=== PATIENT | male | born 1970 | race Caucasian/White ===

== ENCOUNTER → 2022-05-27 11:21 | Outpatient (CLI) | payer OTHER, SELFPAY ==
[2022-05-27 12:31] LABS: COVID19 -Nasal RAPID Negative (Negative)
== END ==
PROVIDERS: Visit Provider Surgery
DX: Z01.812 Encounter for preprocedural laboratory examination (principal); Z20.822 Contact with and (suspected) exposure to COVID-19
CPT/HCPCS: 87635; C9803

== ENCOUNTER 2022-05-30 07:12 | Day surgery (SDC) | payer OTHER, SELFPAY ==
--- NOTE | 2022-05-30 | PATH_ITS ---
[facility] Accession Number: [id number] . 01 Material submitted: . colon - RECTAL/SIGMOID COLON POLYP . 01 Diagnosis: Rectal/Sigmoid Colon Polyp: Hyperplastic polyp. MRV 05/31/2022 1242 Local . 01 Electronically signed: . Magali Bell MD, Pathologist NPI- [id number] . 01 Gross description: . RECTAL/SIGMOID COLON POLYP: Received in formalin is 1 fragment(s) of sagastume, soft tissue measuring 0.3 x 0.3 x 0.2 cm submitted entirely in 1 cassette(s) /CAT 05/30/2022 1927 Local . 01 Pathologist provided ICD-10: K63.5, Z12.11 . 01 CPT . 307137 Specimen Comment: A courtesy copy of this report has been sent to [phone] Performed at: 01 [facility] [address] [place] [address], [place], [place] [id number] MD Paxton Pham MD Phone: [phone]
[2022-05-30] MEDS: LACTATED RINGERS 1,000 ML 100 ML IV (07:39)
[2022-05-30 07:40] VITALS: BP 127/74; PULSE 64; RESP 16; TEMP 35.9; O2SAT 98; BMI 33.1
--- NOTE | 2022-05-30 08:32 | PM.HP.1 ---
History of Present Illness History of Present Illness Date Patient Seen: 05/30/22 Time Patient Seen: 08:32 Chief complaint: SCREENING COLONOSCOPY Narrative: I reviewed my office note from April of this year. No changes. Patient History Family & Social History Social History: household members family Tobacco & Substance use: Smoking Status Former smoker alcohol intake frequency holiday/special occasion Substance Use Type does not use Meds Home Medications and Allergies Home Medications Medication Instructions Recorded Confirmed Type atorvastatin 80 mg tablet 80 tab PO DAILY 05/30/22 05/30/22 History clopidogrel 75 mg tablet 75 mg PO DAILY 05/30/22 05/30/22 History losartan 25 mg tablet 25 tab PO DAILY 05/30/22 05/30/22 History metoprolol tartrate 25 mg tablet 25 tab PO DAILY 05/30/22 05/30/22 History Allergies Allergy/AdvReac Type Severity Reaction Status Date / Time No Known Drug Allergies Allergy Verified 05/30/22 07:57 Review of Systems Review of Systems ROS: Yes All systems reviewed with the patient and are negative except as otherwise documented Exam Vital Signs (past 8 hours): - 05/30/22 07:40 Temperature 96.7 F L Pulse Rate 64 Respiratory Rate 16 Blood Pressure 127/74 Pulse Oximetry 98 Oxygen Delivery Method Room Air Oxygen Delivery Method Room Air Const General: cooperative HENMT Head: normal to inspection Eyes General: appearance normal, both eyes and all related structures Neck Neck: normal visual inspection Chest Chest: normal inspection of the chest Resp Effort & Inspection: normal respiratory effort Cardio Rate: regular rate GI Inspection: normal to inspection Skin General: no rashes or lesions noted Neuro General: patient alert and patient awake Extrem General: normal to inspection and no pedal edema Psych Appearance: grossly normal Assessment & Plan Assessment & Plan narrative: 52-year-old male indicated for colon cancer screening. He is off his Plavix x5 days. Colonoscopy is planned for today. Time Spent With Patient Critical Care time: I spent a total of [] minutes of critical care time on this patient's care today; this time is exclusive of procedural time.
--- NOTE | 2022-05-30 08:33 | PM.PREOP ---
Pre-operative Note COVID-19 COVID-19 status: Negative Result date/Date tested (Pos, Neg/Pending): 05/27/22 Criteria for continued procedure: Possibility delay results in more complex future surgery or treatment Interval Note History & Physical reviewed/Exam performed by Physician: Yes Changes to H&P: No ASA Class (for procedural sedation): II
--- NOTE | 2022-05-30 09:46 | P.OP.COLON_ITS ---
Operative Date/Time/Diagnoses Date of procedure: 05/30/22 Time of procedure: 09:46 Pre-op diagnosis: Colon cancer screening Post-op diagnosis: same Procedure & Clinicians Study performed: Colonoscopy with hot snare polypectomy Same procedure as scheduled: Yes Indications: Colon cancer screening Surgeon: Tomi Argueta Procedure Notes SCOAP/Timeout: Done Procedure in detail: After the risks and benefits were explained, written and verbal informed consent was obtained. The patient was brought into the procedure room and placed into the left lateral decubitus position. Please see nurse java software architect notes for sedation details. Digital rectal examination was accomplished. The scope was introduced into the patient and advanced under direct visualization to the cecum as identified by the appendiceal orifice and ileocecal valve. The scope was slowly withdrawn to carefully examine the mucosa for any defects or lesions. Comprehensive imaging was accomplished throughout the rectum including the dentate line. The colon was decompressed, the scope was then removed from the patient who tolerated the procedure well. Bowel prep fair at best copious amounts of irrigation and suction were required. Even with this there were some areas that could not be fully cleansed. Adult colonoscope Scope withdrawal time: 14 minutes Sedation minutes: 23 Complications: none Impression: Bowel prep was fair at best copious irrigation was required. Some areas could not be fully cleansed. In the rectosigmoid there was a 6 mm sessile polyp removed with hot snare. Patient had grade 2 internal hemorrhoids noted on direct views. No additional pathology was appreciated throughout. Endoscopic diagnosis 1. Colon polyp 2. Grade 2 hemorrhoids Post-procedure Plan for aftercare: 1. Await histopathology 2. Even if the polyp is confirmed hyperplastic, based on prep today I would recommend an early repeat screening within the next 3-5 years considering the bowel prep today. 3. Plavix can be restarted in the next couple of days. Disposition: PACU
[2022-05-30 09:50] VITALS: BP 104/53; PULSE 60; RESP 13; TEMP 36.4; O2SAT 96
[2022-05-30 09:55] VITALS: BP 103/47; PULSE 59; RESP 16; TEMP 36.6; O2SAT 98
[2022-05-30 10:00] VITALS: BP 108/61; PULSE 56; RESP 16; TEMP 36.4; O2SAT 98
[2022-05-30 10:04] VITALS: BP 110/63; PULSE 53; RESP 16; TEMP 36.3; O2SAT 98
== END 2022-05-30 10:20 | disposition home or self-care (01) ==
PROVIDERS: Referring Provider Internal Medicine Gastroenterology; Visit Provider Internal Medicine Gastroenterology
PROC: 0DJD8ZZ Inspection of Lower Intestinal Tract, Via Natural or Artificial Opening Endoscopic (ICD-10-PCS; CPT 45378; principal; 2022-05-30 09:00)
DX: Z12.11 Encounter for screening for malignant neoplasm of colon (principal); K64.1 Second degree hemorrhoids; K63.5 Polyp of colon
CPT/HCPCS: 45385; J2704

== ENCOUNTER → 2023-02-09 12:01 | Outpatient (CLI) | payer OTHER, SELFPAY | DX: G56.00 Carpal tunnel syndrome, unspecified upper limb (principal) | CPT/HCPCS: 95885; 95886; 95910 ==

== ENCOUNTER → 2023-02-23 13:15 | Outpatient (CLI) | payer OTHER, SELFPAY ==
[2023-02-23 14:15] LABS: Add Manual Diff / Slide Review NO; Basophils Absolute Auto 100 /uL (0-100); Basophils Percent Auto 0.7 % (0-2); Eosinophils Absolute Auto 300 /uL (0-450); Eosinophils Percent Auto 3.5 % (2-4); Hematocrit 42.2 % (41-53); Hemoglobin 14.5 g/dL (13.5-17.5); Lymphocytes Absolute Auto 2500 /uL (1100-4500); Lymphocytes Percent Auto 29.2 % (25-40); Mean Corpuscular HGB Conc 34.3 % (30-36); Mean Corpuscular Hemoglobin 31.1 PG (26-34); Mean Corpuscular Volume 90.7 fL (80-100); Monocytes Absolute Auto 700 /uL (0-900); Monocytes Percent Auto 8.5 % (3-14); Neutrophils Absolute Auto 5100 /uL (1500-7000); Neutrophils Percent Auto 58.1 % (50-75); Platelet Count 234 X10^3/uL (150-400); Red Blood Cell Count 4.65 X10^6/uL (4.5-5.9); Red Cell Distribution Width 13.4 % (11.6-14.8); White Blood Cell Count 8.7 X10^3/uL (4.5-11.0)
[2023-02-23 14:29] LABS: BUN Creatinine Ratio 20.6 (6-22); Blood Urea Nitrogen 20 mg/dL (9-20); Calcium 9.2 mg/dL (8.4-10.2); Carbon Dioxide 31 mmol/L (22-32); Chloride 100 mmol/L (98-107); Estimated Glomerular Filt Rate > 60 mL/min (>60); Glucose 83 mg/dL (70-100); HEMOLYSIS < 15 (0-50); Sodium 139 mmol/L (137-145)
[2023-02-23 14:43] LABS: Appearance Urine UA CLEAR; Bilirubin Urine UA NEGATIVE (NEGATIVE); Color Urine UA YELLOW; Glucose Urine UA NEGATIVE (Negative); Ketones Urine UA NEGATIVE (NEGATIVE); Leukocyte Esterase Urine UA NEGATIVE (NEGATIVE); Nitrite Urine UA NEGATIVE (Negative); Occult Blood Urine UA NEGATIVE (Negative); Protein Urine UA NEGATIVE (Negative); Urobilinogen Urine UA 0.2 E.U./dL (0.2)
[2023-02-23 14:47] LABS: Bacteria Urine None Seen; Culture Indicated Urine Cult Not Indicated; RBC Urine None Seen (0-5/HPF); Urine Comments Microscopic Normal; WBC Urine None Seen (0-5/HPF)
[2023-02-24 09:32] LABS: Labcorp Hemoglobin (Hb) A1c 6.5 % (4.8-5.6)
== END ==
PROVIDERS: Referring Provider Orthopaedic Surgery; Visit Provider Orthopaedic Surgery
DX: Z01.818 Encounter for other preprocedural examination (principal); Z01.812 Encounter for preprocedural laboratory examination; R73.9 Hyperglycemia, unspecified; N39.0 Urinary tract infection, site not specified
CPT/HCPCS: 36415; 80048; 81001; 83036; 85025; 93005; 93010

== ENCOUNTER 2023-05-16 08:20 | Day surgery (SDC) | payer OTHER, SELFPAY ==
[2023-05-03 15:15] VITALS: BMI 32.3
[2023-05-16] VITALS (7 sets, daily range): BP systolic 134–160; BP diastolic 79–92; PULSE 57–78; RESP 10–20; TEMP 36.2–36.4; O2SAT 91–98; BMI 32.3
--- NOTE | 2023-05-16 08:30 | DI.RAD.S_ITS ---
PROCEDURE: XR KNEE LT 1TO2V INDICATIONS: UKA TECHNIQUE: 2 view(s) of the knee acquired. COMPARISON: None. FINDINGS: Bones: Patient is status post left knee medial hemiarthroplasty.. Hardware components are in expected positions. Surgical clips present in the subcutaneous medial soft tissues above the knee joint. Visualized bony structures are intact. Soft tissues: There is intra-articular air. IMPRESSION: 1. Expected appearance post medial hemiarthroplasty. Dictated by: Patricia Stacy M.D. on 05/16/2023 at 12:25 Approved by: Patricia Stacy M.D. on 05/16/2023 at 12:26
[2023-05-16] MEDS: ACETAMINOPHEN 325 MG TABLET 975 MG PO (09:03)
[2023-05-16] MEDS: PREGABALIN 75 MG CAPSULE PO (09:04)
[2023-05-16] MEDS: LACTATED RINGERS 1,000 ML 42 ML IV (09:04)
[2023-05-16] MEDS: CELECOXIB 200 MG CAPSULE PO (09:04)
[2023-05-16] MEDS: MIDAZOLAM 2 MG/2 ML VIAL IV ×2 (09:19→10:20)
[2023-05-16] MEDS: VANCOMYCIN 1,000 MG/200 ML PIGGYBACK 200 MG IV (09:40)
--- NOTE | 2023-05-16 10:15 | PM.PREOP ---
Pre-operative Note Interval Note History & Physical reviewed/Exam performed by Physician: Yes Changes to H&P: No
--- NOTE | 2023-05-16 10:16 | PM.OP.1 ---
Operative Date/Time/Diagnoses Date of procedure: 05/16/23 Time of procedure: 10:30 Pre-op diagnosis: Left knee OA Post-op diagnosis: same Procedure & Clinicians Procedure: Left knee medial unicompartment arthroplasty Same procedure as scheduled: Yes Indications: The patient has had progressively worsening left knee pain with radiographic changes consistent with arthritis. Non-operative management has failed and the patient has requested medial unicompartment knee replacement. The risks, benefits and alternatives to surgery were discussed with the patient prior to proceeding. Risks discussed included, but were not limited to, failure to relieve pain, stiffness, infection, nerve damage, deep venous thrombosis, pulmonary embolism, stroke, coma, heart attack, permanent paralysis and , as well as the potential need for eventual revision of the prosthetic. Surgeon: Marry Sanchez Residential Program Manager: Maurisio Stephens Anesthesia Type: General Operative Notes Findings: Severe left knee medial compartment arthritis, acceptable stability, adequate bone Closure Type: primary Specimen(s): none sent Prosthetic devices, grafts, tissues, transplants, or devices: [facility] size femur 7, tibia 7, poly 9 mm Estimated Blood Loss (mL): 100 Blood products transfused: none Tourniquet time (min): 59 Procedure in detail: The patient was seen in the pre-operative area, where the left knee was identified as the operative site and this was marked with my initials. The patient received pre-operative antibiotics, and was taken to the operating room and placed on the operative table in the supine position. After satisfactory anesthesia, a public relations assistant out was performed. The left leg was encircled with a tourniquet about the proximal thigh, and the leg was prepared from the toes to the tourniquet with ChloroPrep in the usual fashion and draped through sterile drapes. The leg was elevated and exsanguinated with Eschmark bandage and the tourniquet inflated to [250] mmHg pressure. The knee was approached through an approximately 10 cm incision medial parapatella incision and carried into the knee through a medial parapatellar arthrotomy. The osteophytes and medial meniscus were removed. A PA was used throughout the procedure and was essential for retraction and intraoperative positioning. Next, a small amount of the anterior tibial boss was carefully resected with a saw. The guide was placed along the medial joint line. It was meticulously adjusted to make sure there was appropriate slope that it was at the joint line and then was pinned to the tibia and the femur. The medial femoral condylar cut was made in extension. The tibial cut was made in flexion. The bone was meticulously irrigated with normal saline. Small amount of additional meniscus was resected posterior capsule was checked and injected with Marcaine. The extension gap was carefully checked with an 8 mm gap ladder operator was noted that it fit well. A small number of additional osteophytes were resected. The tibia was a size [7]. It was noted that it fit without overhang. The femur was sized and it was noted to be a [7]. The appropriate cutting guide was pinned into place and carefully positioned on the femoral condyle. Drill holes were placed. The tibia was pinned into place and drill holes were made. Trial reduction with the appropriate poly showed full range of motion and good stability at 0, 45. and 90? with normal tracking of the components without edge loading. The bone was meticulously irrigated and dried. Additional Marcaine was injected. The posterior capsule was injected with 0.25% Marcaine mixed with 20 ml Exparel for post-operative pain control. The remainder of this mixture was injected into the capsule and subcutaneous tissues during cement curing. Range of motion was [0-130], with good stability throughout the range. The trials were then remove. The cement was as applied and the final prosthetics placed. Excess cement was removed during and after cement curing. A brief medial compartment Betadine soak was performed. After confirming there was no extruded cement posteriorly, the final tibial insert was placed. The knee was copiously irrigated and the tourniquet deflated. Hemostasis was obtained. The capsule was closed with interrupted vicryl. The subcutaneous tissue was closed with barbed sutures. The skin with a running 3-0 V-Lock suture and surgical glue. An Aquacel Ag dressing was applied and the patient was taken to recovery having tolerated the procedure well. Complications: none Post-operative Condition: stable Disposition: Acute Care Plan for aftercare: The patient will be maintained on a standard total knee replacement protocol with weight bearing as tolerated. The patient will receive aspirin and sequential compression devices for DVT prophylaxis. The patient will be discharged home when safe for the home environment.
[2023-05-16] MEDS: CEFAZOLIN 2 GM/100 ML PREMIX 100 ML IV (10:50)
--- NOTE | 2023-05-16 11:10 | SUR.OPER ---
Supine on padded OR bed. Pillow under head, arms secured on padded armboards <90 degree abduction. Safety belt across torso. Non-operative leg secured with tape over blanket over lower leg. Operative leg secured in Joseph positioner. Foam padded brace at thigh of operative leg.
[2023-05-16] MEDS: BUPIVACAINE LIPOSOME 266 MG/20 ML VIAL INJ (11:18)
[2023-05-16] MEDS: BUPIVACAINE 0.5% W/ EPI (PF) 30 ML VIAL INJ (11:20)
== END 2023-05-16 13:23 | disposition home or self-care (01) ==
PROVIDERS: Referring Provider Student in an Organized Health Care Education/Training Program; Visit Provider Orthopaedic Surgery
PROC: (CPT 27446; principal; 2023-05-16 10:45)
DX: M17.12 Unilateral primary osteoarthritis, left knee (principal); I10 Essential (primary) hypertension; E78.5 Hyperlipidemia, unspecified; G47.33 Obstructive sleep apnea (adult) (pediatric); I25.2 Old myocardial infarction; I25.10 Atherosclerotic heart disease of native coronary artery without angina pectoris; Z87.891 Personal history of nicotine dependence; Z79.82 Long term (current) use of aspirin; Z79.899 Other long term (current) drug therapy
CPT/HCPCS: 27446; 73560; 82962; C1776; C9290; J0690; J1100; J1170; J2250; J2405; J2704; J3010

== ENCOUNTER 2023-05-22 13:01 | Emergency (ER) | payer OTHER, SELFPAY ==
[2023-05-22 13:04] VITALS: BP 179/96; PULSE 72; RESP 18; TEMP 37; O2SAT 98; BMI 33.7
--- NOTE | 2023-05-22 13:13 | DI.US.S_ITS ---
PROCEDURE: US PERIPH VENOUS LOW EXTREM LT INDICATIONS: LLE SWELLING/ SP LEFT PARTIAL KNEE REPLACEMENT TECHNIQUE: Real-time imaging, as well as color and pulse Doppler interrogation, were performed of the lower extremity deep veins from the inguinal ligament to the popliteal fossa. COMPARISON: None. FINDINGS: The common femoral, femoral and popliteal veins are normally compressible, and free of intraluminal thrombus. Color and pulse Doppler demonstrate normal phasic intraluminal flow. There is normal augmentation response to distal compression maneuver. Suboptimal visualization of lower portion of left superficial femoral vein secondary to recent surgery and swelling. IMPRESSION: Negative left lower extremity duplex venous ultrasound for DVT. Dictated by: Rajinder Tena M.D. on 05/22/2023 at 14:23 Approved by: Rajinder Tena M.D. on 05/22/2023 at 14:24
--- NOTE | 2023-05-22 15:27 | ED.EXTPRO ---
HPI - Extremity Problem <Kelly Castro PA-C - Last Filed: 05/22/23 15:32> General Chief complaint: Extremity Problem,Nontraumatic Stated complaint: left leg partial knee replacement week ago Time Seen by Provider: 05/22/23 14:47 Source: patient Mode of arrival: Ambulatory History of Present Illness HPI Narrative: 53-year-old male 1 week status post left knee replacement presents to the ED with an area of bruising in the distal inner left thigh. Patient states that he noticed the bruising yesterday, called his orthopedic surgeon Dr. Sanchez's office, they sent him to the ED to rule out a DVT. They also mentioned that it could possibly be trauma from a tourniquet during the surgery. Patient denies chest pain, shortness of breath, numbness, tingling, weakness. Related Data Home Medications Medication Instructions Recorded Confirmed atorvastatin 80 mg tablet 80 tab PO DAILY 05/30/22 05/16/23 losartan 25 mg tablet 25 tab PO DAILY 05/30/22 05/16/23 metoprolol tartrate 25 mg tablet 25 tab PO DAILY 05/30/22 05/16/23 aspirin 81 mg tablet,delayed 162 mg PO DAILY 05/04/23 05/16/23 release Previous Rx's Medication Instructions Recorded oxycodone 5 mg capsule 5 mg PO Q6H PRN pain #30 caps 05/16/23 Allergies Allergy/AdvReac Type Severity Reaction Status Date / Time No Known Drug Allergies Allergy Verified 05/16/23 08:37 Review of Systems <Kelly Castro PA-C - Last Filed: 05/22/23 15:32> Review of Systems ROS Unobtainable: All systems reviewed & are unremarkable except as noted in HPI and below Constitutional Constitutional: Denies chills, Denies fatigue, Denies fever(s), Denies frequent falls, Denies lethargy and Denies weakness Eyes Eyes: Denies change in vision, Denies eye discharge, Denies irritation and Denies loss of vision ENT Ears, Nose, Mouth, and Throat: Denies change in voice, Denies dizziness, Denies neck pain, Denies sore throat and Denies throat swelling Cardiovascular Cardiovascular: Denies chest pain, Denies irregular heart rhythm, Denies lightheadedness, Denies palpitations, Denies dyspnea, Denies dyspnea on exertion and Denies orthopnea Respiratory Respiratory: Denies cough, Denies dyspnea, Denies dyspnea on exertion and Denies wheezing Gastrointestinal Gastrointestinal: Denies abdominal pain, Denies change in bowel habits, Denies diarrhea, Denies nausea and Denies vomiting Genitourinary Genitourinary: Denies hematuria, Denies flank pain, Denies urinary incontinence and Denies urinary urgency Musculoskeletal Musculoskeletal: Denies back pain, Denies muscle weakness, Denies neck pain, Denies numbness and Denies tingling Comments: Left thigh bruising Integumentary/Breasts Skin/Breast: Denies pruritus, Denies erythema, Denies rash and Denies wounds Neurologic Neurologic: Denies behavioral changes, Denies confusion, Denies dizziness, Denies frequent falls, Denies loss of vision, Denies numbness, Denies tingling and Denies weakness Psychiatric Psychiatric: Denies anxiety, Denies behavioral changes, Denies confusion, Denies depression, Denies homicidal ideation and Denies suicidal ideation Endocrine Endocrine: Denies fatigue, Denies flushing and Denies palpitations Hematologic/Lymphatic Hematologic/Lymphatic: Denies easy bruising Allergic/Immunologic Allergic/Immunologic: Denies urticaria, Denies throat swelling and Denies wheezing Patient History <Kelly Castro PA-C - Last Filed: 05/22/23 15:32> Medical History CAD (coronary artery disease) HLD (hyperlipidemia) HTN (hypertension) NSTEMI (non-ST elevated myocardial infarction) PRITI on CPAP Surgical History History of dental surgery Hx of arthroscopy of knee Hx of colonoscopy (05/30/22) Hx of heart artery stent (2020) Hx of tonsillectomy S/P CABG x 3 (2019) Social History household members: family Smoking Status: Former smoker alcohol intake: current Smoking Status: Former smoker alcohol intake frequency: holidays/special occasions only Substance Use Type: does not use Exam <Kelly Castro PA-C - Last Filed: 05/22/23 15:32> Narrative Exam Narrative: Const General:?cooperative, healthy appearing and comfortable HENMD Head:?normal to inspection Ears:?hearing grossly normal bilaterally Nose:?external nose normal Face and sinus:?normal facial exam and sinuses nontender Mouth:?oral mucosae normal Throat:?posterior oropharynx normal Eyes General:?appearance normal, both eyes and all related structures Neck Neck:?normal visual inspection and no lymphadenopathy noted Resp Effort & Inspection:?normal respiratory effort Auscultation:?clear to auscultation bilaterally Cardio Rate:?regular rate Rhythm:?regular rhythm Integumentary There is a large area of bruising on the distal inner left thigh. No signs of infection. Neuro General:?patient alert, patient awake and patient oriented x3 Initial Vital Signs Initial Vital Signs: Vital Signs Temperature 98.6 F 05/22/23 13:04 Pulse Rate 72 05/22/23 13:04 Respiratory Rate 18 05/22/23 13:04 Blood Pressure 179/96 H 05/22/23 13:04 Pulse Oximetry 98 05/22/23 13:04 Oxygen Delivery Method Room Air 05/22/23 13:04 <Safia James DO - Last Filed: 05/23/23 08:42> Initial Vital Signs Initial Vital Signs: Vital Signs Temperature 98.6 F 05/22/23 13:04 Pulse Rate 72 05/22/23 13:04 Respiratory Rate 18 05/22/23 13:04 Blood Pressure 179/96 H 05/22/23 13:04 Pulse Oximetry 98 05/22/23 13:04 Oxygen Delivery Method Room Air 05/22/23 13:04 Course <Kelly Castro PA-C - Last Filed: 05/22/23 15:32> Orders Ordered: ED Orders 05/22/23 13:13 perip venous low extrem lt Stat Vital Signs Vital signs: Vital Signs - 8 hr 05/22/23 13:04 Temperature 98.6 F Pulse Rate 72 Respiratory Rate 18 Blood Pressure 179/96 H Pulse Oximetry 98 Oxygen Delivery Method Room Air <DO Kat Tillman Last Filed: 05/23/23 08:42> Orders Ordered: ED Orders 05/22/23 13:13 perip venous low extrem lt Stat Vital Signs Vital signs: Vital Signs - 8 hr 05/22/23 13:04 Temperature 98.6 F Pulse Rate 72 Respiratory Rate 18 Blood Pressure 179/96 H Pulse Oximetry 98 Oxygen Delivery Method Room Air MDM - Extremity (Nontraumatic) <Kelly Castro PA-C - Last Filed: 05/22/23 15:32> [facility] Narrative Medical decision making narrative: 53-year-old male 1 week status post left knee replacement presents to the ED with an area of bruising in the distal inner left thigh. Concern for trauma from the surgery versus DVT. Ultrasound was obtained which does not identify a DVT. The ultrasound study also noted that the left superficial femoral vein was suboptimally visualized due to the recent surgery and swelling. Discussed findings with patient. Patient agrees to follow-up with Dr. Sanchez as soon as possible. Patient agrees to return to the ED if symptoms worsen, he experiences chest pain or shortness of breath. Medical records reviewed: Yes Discharge Plan Departure Patient Disposition: Home Clinical Impression: Bruising Instructions: DI for Contusion Activity Restrictions/Additional Instructions: You were evaluated in the ED today for a bruise to your left inner thigh. The ultrasound study does not show any DVTs or blood clots. Please follow-up with your orthopedic surgeon Dr. Sanchez as soon as possible. Return to the ED if you have worsening symptoms, chest pain, shortness of breath. Prescriptions: No Action aspirin 81 mg Tablet,Delayed Release (Dr/Ec) 162 mg PO DAILY oxycodone 5 mg capsule 5 mg PO Q6H PRN (Reason: pain) Qty: 30 0RF atorvastatin 80 mg tablet 80 tab PO DAILY losartan 25 mg tablet 25 tab PO DAILY Patient Comments: take 1 tablet by mouth once daily metoprolol tartrate 25 mg tablet 25 tab PO DAILY Patient Comments: take 1 tablet by mouth every morning and take 1/2 tablet IN THE AFTERNOON Referrals: RUSSELL Ambriz MD [Primary Care Provider] - Stand Alone Forms: Patient Portal/API <Safia James DO - Last Filed: 05/23/23 08:42> Cosign ED Attending Obeyature Attestation: I was immediately available in the department for consultation. Documentation has been reviewed.
== END 2023-05-22 14:58 | disposition home or self-care (01) ==
PROVIDERS: Emergency Provider Student in an Organized Health Care Education/Training Program
DX: S80.02XA Contusion of left knee, initial encounter (principal); Z96.652 Presence of left artificial knee joint
CPT/HCPCS: 93971; 99283

== ENCOUNTER → 2023-06-22 09:35 | Outpatient (CLI) | payer OTHER, SELFPAY ==
--- NOTE | 2023-06-22 | DI.RAD.S_ITS ---
PROCEDURE: XR WRIST LT 2V INDICATIONS: Unspecified osteoarthritis, unspecified site TECHNIQUE: To views of the wrist were acquired. COMPARISON: [facility], CR, XR WRIST RT 2V, 06/22/2023, 9:46. FINDINGS: Bones: No fractures or dislocations. No suspicious bony lesions. Degenerative changes of the triscaphe joint. Ossifications of the ulnar styloid are seen, possibly related to remote trauma. Soft tissues: No suspicious soft tissue calcifications. IMPRESSION: 1. No acute abnormality of the left wrist. 2. Degenerative changes of the triscaphe joint consistent with osteoarthritis. 3. Ossifications of the ulnar styloid seen, possibly related to remote trauma. Dictated by: Peng Geiger M.D. on 06/22/2023 at 13:27 Approved by: Peng Geiger M.D. on 06/22/2023 at 13:29
--- NOTE | 2023-06-22 | DI.RAD.S_ITS ---
PROCEDURE: XR WRIST RT 2V INDICATIONS: Unspecified osteoarthritis, unspecified site TECHNIQUE: 2 views of the wrist were acquired. COMPARISON: None. FINDINGS: Bones: No fractures or dislocations. Degenerative changes of the triscaphe joint. No suspicious bony lesions. Soft tissues: No suspicious soft tissue calcifications. IMPRESSION: 1. No acute abnormality of the wrist. 2. Degenerative changes of the triscaphe joint consistent with osteoarthritis. Dictated by: Peng Geiger M.D. on 06/22/2023 at 13:23 Approved by: Peng Geiger M.D. on 06/22/2023 at 13:25
== END ==
PROVIDERS: Referring Provider Chiropractor; Visit Provider Chiropractor
DX: M19.90 Unspecified osteoarthritis, unspecified site
CPT/HCPCS: 73100